=== PATIENT | female | born 1995 | race Caucasian/White ===

== ENCOUNTER 2020-04-13 06:12 | Emergency (ER) | payer MEDICAID, OTHER, SELFPAY ==
[2020-04-13] MEDS ORDERED: NS 1,000 ML IV ONE (06:30)
[2020-04-13 06:56] LABS: BLOOD UREA NITROGEN 11 MG/DL (7-18); CARBON DIOXIDE LEVEL 21 MEQ/L (21-32); CHLORIDE LEVEL 112 MEQ/L (98-107); CREATININE FOR GFR 0.82 MG/DL (0.55-1.30); GLOMERULAR FILTRATION RATE > 60.0 (>60); GLUCOSE, FASTING 98 MG/DL (70-100); SODIUM LEVEL 143 MEQ/L (136-145)
[2020-04-13 06:57] LABS: ACETAMINOPHEN LEVEL < 2.0 UG/ML (10.0-30.0); ALBUMIN 4.1 GM/DL (3.2-5.2); ALT/SGPT 10 U/L (12-78); BILIRUBIN,DIRECT < 0.1 MG/DL (0.0-0.2); BILIRUBIN,TOTAL 0.2 MG/DL (0.2-1.0); CALCIUM LEVEL 9.6 MG/DL (8.5-10.1); CPK CREATINE PHOSPHOKINASE 92 U/L (26-192); ETHYL ALCOHOL (ETHANOL) 0.244 % (0.000-0.010); HCG, SERUM QUALITATIVE NEGATIVE (NEGATIVE); SALICYLATE LEVEL < 1.7 MG/DL (5.0-30.0); TOTAL PROTEIN 8.2 GM/DL (6.4-8.2)
[2020-04-13 07:00] LABS: BASO % 0.3 % (0.0-1.0); EOS % 0.3 % (0.0-3.0); HEMOGLOBIN 14.2 g/dl (12.0-15.5); LYMPH % 26.5 % (24.0-44.0); MEAN CORPUSCULAR HEMOGLOBIN 29.2 pg (27.0-33.0); MEAN CORPUSCULAR VOLUME 88.5 fl (80.0-96.0); MONO # 0.5 10^3/uL (0.0-0.8); MONO % 4.6 % (0.0-5.0); NEUTROPHILS # 7.6 10^3/uL (1.5-8.5); NEUTROPHILS % 67.9 % (36.0-66.0); PLATELET COUNT, AUTOMATED 382 10^3/uL (150-450); RED BLOOD COUNT 4.86 10^6/uL (4.00-5.40); WHITE BLOOD COUNT 11.2 10^3/uL (4.0-10.0)
[2020-04-13 07:08] LABS: AMPHETAMINES LEVEL URINE NEGATIVE (NEGATIVE); BARBITURATES URINE NEGATIVE (NEGATIVE); BENZODIAZEPINES URINE NEGATIVE (NEGATIVE); CANNABINOIDS URINE NEGATIVE (NEGATIVE); COCAINE METABOLITE URINE NEGATIVE (NEGATIVE); METHADONE URINE NEGATIVE (NEGATIVE); OPIATES URINE NEGATIVE (NEGATIVE); PHENCYCLIDINE URINE NEGATIVE (NEGATIVE)
[2020-04-13 13:30] VITALS: BP 112/58
--- NOTE | 2020-04-14 09:38 | ECGEPIP ---
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 Order Number: [id number] Reading MD: Christopher Jarquin Measurements Intervals [place] Rate: 114 P: 49 [place]: 163 QRS: 36 QRSD: 105 T: 17 QT: 324 QTc: 448 Interpretive Statements SINUS TACHYCARDIA WITH BORDERLINE FIRST DEGREE AV BLOCK POOR R WAVE PROGRESSION BASELINE ARTIFACT AFFECTS INTERPRETATION NO PRIORS FOR COMPARISON Electronically Signed on 04-14-2020 9:37:58 EST by Christopher Jarquin
== END 2020-04-13 13:33 | disposition home or self-care (01) ==
LOC: M ED 06:12
DX: F10.120 Alcohol abuse with intoxication, uncomplicated (principal); S60.812A Abrasion of left wrist, initial encounter; X58.XXXA Exposure to other specified factors, initial encounter; Y92.89 Other specified places as the place of occurrence of the external cause; F17.200 Nicotine dependence, unspecified, uncomplicated; F19.10 Other psychoactive substance abuse, uncomplicated; Z78.1 Physical restraint status
CPT/HCPCS: 80048; 80076; 80307; 82550; 84443; 84703; 85025; 93005; 93041; 94760; 96360; 96361; 99285; G0480

== ENCOUNTER 2020-08-04 04:01 | Inpatient (IN) | payer OTHER ==
[2020-08-04] MEDS ORDERED: METAL LOCK LOOP XX ONE (04:28)
[2020-08-04 04:37] LABS: HEMATOCRIT 41.4 % (36.0-47.0); HEMOGLOBIN 13.6 g/dl (12.0-15.5); MEAN CORPUSCULAR HEMOGLOBIN 29.2 pg (27.0-33.0); MEAN CORPUSCULAR HGB CONC 32.9 g/dl (32.0-36.5); MEAN CORPUSCULAR VOLUME 88.8 fl (80.0-96.0); PLATELET COUNT, AUTOMATED 351 10^3/uL (150-450); RED BLOOD COUNT 4.66 10^6/uL (4.00-5.40); WHITE BLOOD COUNT 8.8 10^3/uL (4.0-10.0)
[2020-08-04 05:19] LABS: HCG, SERUM QUALITATIVE NEGATIVE (NEGATIVE)
[2020-08-04 05:22] LABS: ACETAMINOPHEN LEVEL < 2.0 UG/ML (10.0-30.0); ALBUMIN 4.1 GM/DL (3.2-5.2); ALT/SGPT 11 U/L (12-78); BILIRUBIN,DIRECT 0.2 MG/DL (0.0-0.2); BILIRUBIN,TOTAL 0.8 MG/DL (0.2-1.0); BLOOD UREA NITROGEN 14 MG/DL (7-18); CALCIUM LEVEL 9.4 MG/DL (8.5-10.1); CARBON DIOXIDE LEVEL 28 MEQ/L (21-32); CHLORIDE LEVEL 105 MEQ/L (98-107); CREATININE FOR GFR 0.81 MG/DL (0.55-1.30); ETHYL ALCOHOL (ETHANOL) < 0.003 % (0.000-0.010); GLOMERULAR FILTRATION RATE > 60.0 (>60); GLUCOSE, FASTING 95 MG/DL (70-100); SALICYLATE LEVEL < 1.7 MG/DL (5.0-30.0); SODIUM LEVEL 138 MEQ/L (136-145); TOTAL PROTEIN 7.9 GM/DL (6.4-8.2)
[2020-08-04] MEDS ORDERED: BOOSTRIX/ADACEL VACCINE (DIPHTH/PERTUSS/ACELL/TETANUS) 0.5ML SYR IM ONE (09:10)
[2020-08-04 11:37] LABS: RSV AMPLIFICATION NEGATIVE (NEGATIVE)
[2020-08-04 13:13] LABS: AMPHETAMINES LEVEL URINE NEGATIVE (NEGATIVE); BARBITURATES URINE NEGATIVE (NEGATIVE); BENZODIAZEPINES URINE NEGATIVE (NEGATIVE); CANNABINOIDS URINE POSITIVE (NEGATIVE); COCAINE METABOLITE URINE NEGATIVE (NEGATIVE); METHADONE URINE NEGATIVE (NEGATIVE); OPIATES URINE NEGATIVE (NEGATIVE); PHENCYCLIDINE URINE NEGATIVE (NEGATIVE)
[2020-08-04] MEDS ORDERED: MOM 30ML SUSPENSION UDC PO PRN (14:25)
[2020-08-04] MEDS ORDERED: MAALOX 30 ML SUSP *UDC PO PRN (14:25)
[2020-08-04] MEDS ORDERED: LORazepam 2 MG TAB PO PRN (14:25)
[2020-08-04] MEDS: THIAMINE 100 MG TAB PO SCH (15:00)
[2020-08-04] MEDS: FOLIC ACID 1 MG TAB PO SCH (15:53)
[2020-08-04] MEDS: MULTIVITAMINS/MINERALS THERAP 1 TAB PO SCH (15:53)
[2020-08-04 17:35] VITALS: BP 127/75
[2020-08-04 20:29] VITALS: BP 127/75
[2020-08-04] MEDS: traZODone 50 MG TAB PO PRN (21:59)
[2020-08-04] MEDS: IBUPROFEN 400MG TAB PO PRN (21:59)
[2020-08-05 06:21] VITALS: BP 130/73
[2020-08-05] MEDS: THIAMINE 100 MG TAB PO SCH ×2 (09:30→20:49)
[2020-08-05] MEDS: MULTIVITAMINS/MINERALS THERAP 1 TAB PO SCH (09:30)
[2020-08-05] MEDS: FOLIC ACID 1 MG TAB PO SCH (09:30)
--- NOTE | 2020-08-05 12:37 | HPEPDOC ---
[facility] Medical History & Physical Date of Admission Aug 04, 2020 Date of Service: Aug 05, 2020 History and Physical CHIEF COMPLAINT: self harm HISTORY OF PRESENT ILLNESS: 25 year old female seen and examined at bedside. Admitted to [facility] for psychosis, and self-harm. This morning she voices no medical complaints. She denies chest pain, shortness of breath, abdominal pain, N/V/D, dizziness of headaches. ALLERGIES: Please see below. REVIEW OF SYSTEMS: Negative except as per HPI. HOME MEDICATIONS: Please see below. PHYSICAL EXAMINATION: VITAL SIGNS: See below General: NAD, sitting comfortably in chair HEENT: NC/AT, EOMI Lungs: CTA B/L Heart: +S1S2, RRR Abd: soft, NT, +BS Ext: no edema MICROBIOLOGY: Please see below. A/P: 25 yo female admitted for psychosis and concerns for self harm. #psych - as per primary team - psychiatry Thank you for this consultation. Please re-consult as needed. Vital Signs Vital Signs Date Time Temp Pulse Resp B/P (MAP) Pulse Ox O2 Delivery O2 Flow Rate FiO2 08/05/20 06:21 98.4 77 18 130/73 (92) 98 08/04/20 17:35 Room Air Home Medications No Active Prescriptions or Reported Meds Allergies Coded Allergies: No Known Allergies (Unverified , 04/13/20) A-FIB/CHADSVASC A-FIB History Current/History of A-Fib/PAF?: No LAWSON GUZMAN MD Aug 05, 2020 12:37
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
[2020-08-05 16:44] VITALS: BP 125/85
[2020-08-05] MEDS: IBUPROFEN 400MG TAB PO PRN (20:49)
[2020-08-05] MEDS: traZODone 50 MG TAB PO PRN (20:50)
[2020-08-06 06:29] VITALS: BP 126/60
[2020-08-06] MEDS: THIAMINE 100 MG TAB PO SCH ×2 (08:21→22:01)
[2020-08-06] MEDS: FOLIC ACID 1 MG TAB PO SCH (08:21)
[2020-08-06] MEDS: MULTIVITAMINS/MINERALS THERAP 1 TAB PO SCH (08:21)
--- NOTE | 2020-08-06 14:06 | MHIPNPDOC ---
[facility] Progress Note Progress Note DATE OF SERVICE: 08/06/20 HISTORY: Patient has had numerous depressive episodes recently with in [place]. Patient denies these episodes, but friend did inform us. Patient has been depressed and called police that she was suicidal. Today, she is irritable, wants to go home, does not want any follow-up or any medications VITAL SIGNS: See below. NEW TEST RESULTS: None. CURRENT MEDICATIONS: See below. MENTAL STATUS EXAMINATION: Patient is a 25-year old female, who is depressed and somewhat unstable but now irritable, angry, wanting discharge with no medications and no follow-up. Speech: Is normal. Language skills are. No gross disturbance. Thought processes including: As above. Thought content: As above. Abstract reasoning, and computation:. Poor abstraction. Description of associations:. No loose association. Description of abnormal or psychotic thoughts:. No psychotic thoughts. Denies or hides her recent history of depressive episodes. Judgment:, Poor. Insight: Poor. Orientation: 3. Recent and remote memory: Intact. Attention span and concentration: Intact. Language:. No disturbance. Fund of knowledge: Reasonable. Mood: Low. Affect: Irritable and irritated. DIAGNOSES: 1. Major depression. 2., Marital stressors. 3., Personality disorder. ASSESSMENT: As above MANAGEMENT PLAN:, We will discharge as patient does not want follow-up or medication. TIME SPENT: 35 minutes. Vital Signs Vital Signs Date Time Temp Pulse Resp B/P (MAP) Pulse Ox O2 Delivery O2 Flow Rate FiO2 08/06/20 06:29 98.4 73 18 126/60 (82) 99 Room Air Current Medications Current Medications Medications (Trade) Dose Ordered Sig/Brian Route PRN Reason Start Time Stop Time Status Last Admin Dose Admin Al Hydrox/Mg Hydrox/Simethicone (Mylanta) 30 ml Q4HP PRN PO HEARTBURN/INDIGESTION 08/04/20 14:25 08/05/20 06:14 Folic Acid (Folic Acid) 1 mg DAILY PO 08/04/20 09:00 08/06/20 08:21 Home Med (Med Rec Complete!) ASDIRECTED XX 08/04/20 15:00 08/04/20 15:01 DC Ibuprofen (Advil) 400 mg Q6HP PRN PO PAIN 08/04/20 14:25 08/05/20 20:49 Lorazepam (Ativan) 2 mg ASDIRECTED PRN PO SEE PROTOCOL 08/04/20 14:25 Cancel Magnesium Hydroxide (Milk Of Magnesia) 30 ml DAILYPRN PRN PO CONSTIPATION 08/04/20 14:25 08/06/20 07:38 Multivitamins (Theragram-M) 1 tab DAILY PO 08/04/20 09:00 08/06/20 08:21 Thiamine HCl (Thiamine HCl) 100 mg BID PO 08/04/20 15:00 08/07/20 09:01 08/06/20 08:21 Trazodone HCl (Desyrel) 50 mg QHSP PRN PO INSOMNIA 08/04/20 14:25 08/05/20 20:50 Allergies Coded Allergies: No Known Allergies (Unverified , 04/13/20) JESSICA PIPER MD Aug 06, 2020 14:06
[2020-08-06 16:21] VITALS: BP 126/66
[2020-08-06] MEDS: traZODone 50 MG TAB PO PRN (22:01)
--- NOTE | 2020-08-07 06:18 | MHDSPDOC ---
[facility] Discharge Summary Discharge Summary DATE OF ADMISSION: Aug 04, 2020 at 14:21 DATE OF DISCHARGE: DISCHARGE DIAGNOSES: 1. Situational depression. 2. Personality disorder. REASON FOR ADMISSION:. Numerous episodes of depression with focus on past difficulties with and some self-harm associated as well as alcohol use CONSULTANTS INVOLVED: None TREATMENT AND PROGRESS ON THE UNIT :. Patient refused medication. Refused releases refused follow-up. HOSPITAL COURSE:. Patient initially was depressed on the first day and subsequently became hostile, argumentative, and in denial DISCHARGE ASSESSMENT: Marital problems, inability to handle stress. Some self- harm activities give a poor prognosis but patient has family in [facility] MENTAL STATUS EXAMINATION ON DISCHARGE: Patient is a 25-year old female, who is, irritable and demanding. Speech is. Normal. Language skills are no gross disturbance. Thought processes including: Wanted to be discharged. Denying and minimizing symptoms. Thought content: As above. Abstract reasoning, and computation: Able to abstract and compute. Description of associations: No loose associations. Description of abnormal or psychotic thoughts:. No psychotic thought. Judgment:, Poor judgment. Insight:, Little insight. Orientation to 3. Recent and remote memory: Intact. Attention span and concentration: No gross disturbance. Language:. No gross disturbance. Fund of knowledge: Reasonable. Mood: Irritable. Affect:, Congruent. MEDICATIONS ON DISCHARGE: -Patient refuses any medication PLAN/FOLLOWUP ARRANGEMENTS: Patient refuses any follow-up or releases to be signed. The amount of time spent in the coordination of care for this patient was approximately 35 minutes. Vital Signs/I&Os Vital Signs Date Time Temp Pulse Resp B/P (MAP) Pulse Ox O2 Delivery O2 Flow Rate FiO2 08/06/20 16:21 98.8 87 15 126/66 (86) 100 Room Air Medications No Active Prescriptions or Reported Meds Allergies Coded Allergies: No Known Allergies (Unverified , 04/13/20) JESSICA PIPER MD Aug 07, 2020 06:18
[2020-08-07 06:23] VITALS: BP 131/80
[2020-08-07] MEDS: MULTIVITAMINS/MINERALS THERAP 1 TAB PO SCH (08:13)
[2020-08-07] MEDS: THIAMINE 100 MG TAB PO SCH (08:13)
[2020-08-07] MEDS: FOLIC ACID 1 MG TAB PO SCH (08:13)
== END 2020-08-07 12:32 | disposition home or self-care (01) | DRG 881 ==
LOC: M ED 04:01 → M ED INP 14:21 → M PSY 17:51
PROVIDERS: ADMIT Psychiatry & Neurology Child & Adolescent Psychiatry; ATTEND Psychiatry & Neurology Child & Adolescent Psychiatry
DX: F43.21 Adjustment disorder with depressed mood (principal); Z63.0 Problems in relationship with spouse or partner; Z62.810 Personal history of physical and sexual abuse in childhood; Z91.5 Personal history of self-harm; F60.9 Personality disorder, unspecified

== ENCOUNTER 2023-09-16 07:22 | Emergency (ER) | payer OTHER | END 2023-09-16 07:32 | disposition left against medical advice (07) | LOC: M ED 07:22 | DX: Z53.21 Procedure and treatment not carried out due to patient leaving prior to being seen by health care provider (principal) ==